=== PATIENT | male | born 1995 | race Two or more races ===

== ENCOUNTER 2022-09-17 12:54 | Emergency (ER) | payer OTHER ==
[~2022-09-17] VITALS: Ht 167.6 cm; Wt 154.2 kg
--- NOTE | 2022-09-17 13:20 | NUR ---
"Pain on Right Leg xcouple days. Denies Injury/Trauma"
--- NOTE | 2022-09-17 13:47 | NUR ---
PT PLACED ON BED ,CONNECT TO MONITOR AND PROVIDE BLANKET
[2022-09-17 13:48] VITALS: BP 129/94; TEMP 98.7
--- NOTE | 2022-09-17 14:30 | NUR ---
SEEN BY DR RODRIGUEZ
[2022-09-17] MEDS ORDERED: KETOROLAC TROMETHAMINE INJ 30 MG/ML VIAL ONE (14:35)
[2022-09-17] MEDS ORDERED: GABAPENTIN 300 MG CAPSULE ONE (14:35)
[2022-09-17] MEDS: KETOROLAC TROMETHAMINE INJ 60 MG/2 ML VIAL IM ONE (14:35)
[2022-09-17] MEDS: GABAPENTIN 100 MG CAPSULE PO ONE (14:35)
--- NOTE | 2022-09-17 14:35 | NUR ---
MEDICATION ADMINISTERED PER DOCTORS ORDER
[2022-09-17] MEDS ORDERED: HYDROCODONE/APAP 10/325MG TABLET ONE (15:29)
[2022-09-17] MEDS: HYDROCODONE/APAP 10/325MG TABLET PO ONE (15:34)
[2022-09-17] MEDS ORDERED: IBUP-1955 PO (16:01)
[2022-09-17] MEDS ORDERED: HYDR-3980 PO (16:01)
--- NOTE | 2022-09-17 16:22 | NUR ---
Patient discharged to home in stable condition. Written and verbal after care instructions given. Patient verbalizes understanding of instruction.
== END 2022-09-17 16:23 | disposition home or self-care (01) ==
LOC: ER 13:02
DX: M54.10 Radiculopathy, site unspecified (principal); J45.909 Unspecified asthma, uncomplicated
CPT/HCPCS: 99283; 96372; J1885